=== PATIENT | male | born 1995 | race Caucasian/White ===

== ENCOUNTER 2017-09-19 10:11 | Emergency (ER) | payer MEDICAID ==
[~2017-09-19] VITALS: Ht 177.8 cm; Wt 90.7 kg
[2017-09-19 10:11] VITALS: BP_SYST 122
[2017-09-19] MEDS ORDERED: IBUPROFEN 800 MG TABLET PO ONE (10:30)
[2017-09-19 11:25] VITALS: BP_SYST 128
== END 2017-09-19 11:25 | disposition home or self-care (01) ==
LOC: SED 10:11
DX: J10.1 Influenza due to other identified influenza virus with other respiratory manifestations (principal)
CPT/HCPCS: 36415; 86710; 99284